=== PATIENT | female | born 1945 | race Caucasian/White ===

== ENCOUNTER 2018-06-23 01:17 | Observation (INO) | payer MEDICARE, BC ==
[2018-06-23] MEDS ORDERED: methylPREDNISolone 125 MG* 2 ML VIAL IV ONE (01:20)
[2018-06-23] MEDS ORDERED: NS 0.9% 1000 ML** 1,000 ML IV ONE (01:20)
[2018-06-23] MEDS ORDERED: Azithromycin 500 mg/250 ml NS 500 MG/250 ML BAG IVPB ONE (01:20)
[2018-06-23] MEDS ORDERED: cefTRIAXone(*) 1 GM in NS 0.9% 50 ML* 50 ML IVPB ONE (01:20)
--- NOTE | 2018-06-23 01:23 | ED ---
Shortness of Breath - HPI Summary HPI Summary: A 73 y/o F brought in by ambulance presents to ED with c/o worsening SOB onset 5 days ago. Associated sx: cough. Denies rash. She denies PMHx asthma, COPD but admits to not having seen a doctor in a long time. Denies daily medication. 1ppd smoker. - History of Current Complaint Time Seen by Provider: 06/23/18 01:20 Hx Obtained From: Patient, EMS Onset/Duration: Gradual Onset, Lasting Days, Still Present Timing: Constant Current Severity: Severe Dyspnea At: Rest Associated Signs & Symptoms: Cough (Productive) - Allergy/Home Medications Allergies/Adverse Reactions: Allergies Allergy/AdvReac Type Severity Reaction Status Date / Time No Known Allergies Allergy Verified 06/23/18 01:30 PMH/Surg Hx/FS Hx/Imm Hx Previously Healthy: Yes Respiratory History: Denies: Hx Asthma, Hx Chronic Obstructive Pulmonary Disease (COPD) Sensory History: Denies: Hx Legally Blind, Hx Deafness Opthamlomology History: Denies: Hx Legally Blind EENT History: Denies: Hx Deafness - Social History Occupation: Retired Lives: With Family Hx Tobacco Use: Yes Review of Systems Positive: Shortness Of Breath, Cough Negative: Rash All Other Systems Reviewed And Are Negative: Yes Physical Exam - Summary Physical Exam Summary: Appearance: Well-appearing, Mildly cachetic, elderly F lying in bed comfortably , mild respiratory distress, tachypnea noted Skin: Warm, dry, no obvious rash Eyes: sclera anicteric, no conjunctival pallor ENT: mucous membranes moist, pharynx appears normal Neck: Supple, nontender Respiratory: Prolonged expiratory phase with mildly diminished aeration, do not hear definite wheezes or focal signs of consolidation Cardiovascular: Normal S1, S2. No murmurs. Normal distal pulses in tibial and radial bilaterally. Abdomen: Soft, nontender, normal active bowel sounds present Musculoskeletal: Normal, Strength/ROM Intact Neurological: A&Ox3, awake and alert, mentation is normal, speech is fluent and appropriate Psychiatric: affect is normal, does not appear anxious or depressed Triage Information Reviewed: Yes Vital Signs Reviewed: Yes Diagnostics - Laboratory Result Diagrams: 06/23/18 01:58 06/23/18 01:58 Lab Statement: Any lab studies that have been ordered have been reviewed, and results considered in the medical decision making process. - Radiology CXR Radiology Interpretation Completed By: ED Physician Summary of Radiographic Findings: Stigmata of COPD with diaphragmatic flattening with increased AP diameter with some probably scarring, but no acute infiltrates. - EKG 0131 Cardiac Rate: Tachycardia - 100 bpm EKG Rhythm: Sinus Tachycardia Re-Evaluation - Re-Evaluation 1 Re-Evaluation Time: 03:07 Course/Dx - Course Course Of Treatment: Pt is a 73 y/o F brought in by ambulance presenting with worsening SOB onset 5 days ago. Lab work shows RBC: 5.23, glucose: 122, and low sodium, potassium and chloride levels. EKG is sinus tachy at 100 bpm. CXR shows stigmata of COPD with diaphragmatic flattening with increased AP diameter with some probably scarring, but no acute infiltrates. Consulted with Dr. James , hospitalist, who will admit patient. - Diagnoses Provider Diagnoses: COPD exacerbation, Respiratory distress - Physician Notifications Discussed Care of Patient With: Patricia James - hospitalist Time Discussed With Above Provider: 04:09 Instructed by Provider To: Admit As Inpatient Discharge - Sign-Out/Discharge Documenting (check all that apply): Patient Departure - ADMIT Patient Received Moderate/Deep Sedation with Procedure: No - Discharge Plan Condition: Fair Disposition: ADMITTED TO [facility] Referrals: No Primary Care Phys,NOPCP [Primary Care Provider] - - Billing Disposition and Condition Condition: FAIR Disposition: Admitted to [facility] - Attestation Statements Document Initiated by Malkaibe: Yes Documenting Scribe: Mike Moe Provider For Whom Scribe is Documenting (Include Credential): Dr. Isaias Olmstead MD Scribe Attestation: I, mj Mccracken for Dr. Isaias Olmstead MD on 06/23/18 at 0440. Scribe Documentation Reviewed: Yes Provider Attestation: The documentation as recorded by the Mike baca accurately reflects the service I personally performed and the decisions made by me, Dr. Isaias Olmstead MD Status of Scribe Document: Viewed
[2018-06-23] MEDS ORDERED: Albuterol 2.5 MG/3 ML NEB.SOL* (0.083%) INH ONE ×2 (01:43→02:14)
[2018-06-23] MEDS: Albuterol 2.5 MG/3 ML NEB.SOL* (0.083%) INH SCH ×3 (01:45→02:49)
[2018-06-23 02:08] LABS: Hematocrit 48 % (33-41); Hemoglobin 16.6 g/dL (12.0-16.0); Mean Corpuscular HGB Conc 34 g/dL (31-36); Mean Corpuscular Hemoglobin 32 pg (27-31); Mean Corpuscular Volume 92 fL (80-97); Red Blood Count 5.23 10^6 /uL (3.70-4.87); Red Cell Distribution Width 13 % (10.5-15); White Blood Count 6.8 10^3/uL (3.5-10.8)
[2018-06-23 02:24] LABS: Albumin/Globulin Ratio 1.7 (1-3); BUN/Creatinine Ratio 10.5 (8-20); Calcium 9.1 mg/dL (8.6-10.3); EGFR African American 126.5 (>60); EGFR Non-African American 104.6 (>60); Globulin 2.4 g/dL (2-4); Potassium 3.4 mmol/L (3.5-5.0); Total Bilirubin 0.4 mg/dL (0.2-1.0); Total Protein 6.4 g/dL (6.4-8.9)
[2018-06-23 03:03] LABS: ABS Basophils 0 10^3/ul (0-0.2); ABS Eosinophils 0 10^3/ul (0-0.6); ABS Lymphocytes 0.4 10^3/ul (1.0-4.8); ABS Monocytes 0.5 10^3/ul (0-0.8); ABS Neutrophils 5.9 10^3/ul (1.5-7.7); ABS Nucleated RBC 0 10^3/ul; Eosinophil % 0.1 %; Lymphocyte % 5.8 %; Mean Platelet Volume 9.9 fL (7.4-10.4); Nucleated Red Blood Cells % 0; Platelet Count 99 10^3/uL (150-450)
[2018-06-23] MEDS ORDERED: Al Hydrox/Mg Hydrox/Simet LIQ* 30 ML UDC PO PRN (04:37)
[2018-06-23] MEDS ORDERED: Acetaminophen TAB* 325 MG PO PRN (04:37)
[2018-06-23] MEDS ORDERED: Albuterol/Ipratropium NEB.SOL* Albuterol 2.5 MG/Ipratropium 0.5 MG 3 ML INH PRN (04:41)
[2018-06-23] MEDS ORDERED: Albuterol HFA INHALER* 8 gm MDI INH PRN (04:42)
[2018-06-23] MEDS ORDERED: Nicotine GUM* 2 MG PO PRN (04:46)
[2018-06-23] MEDS ORDERED: Nicotine PATCH 21 MG/24 HR* PATCH TRANSDERM ONE (04:46)
[2018-06-23 05:12] LABS: Magnesium 1.6 mg/dL (1.9-2.7)
[2018-06-23] MEDS ORDERED: Heparin VIAL(*) 5000 UNITS/ML VIAL (FIVE THOUSAND) SUBCUT SCH (06:00)
[2018-06-23] MEDS ORDERED: Nicotine Patch Removal NOTE FOLLOW UP SCH (06:00)
[2018-06-23] MEDS: Lactated Ringers 1000 ML Bag* 1,000 ML IV SCH ×2 (06:26→08:30)
--- NOTE | 2018-06-23 06:31 | HP ---
HISTORY AND PHYSICAL: DATE OF ADMISSION: 06/23/18 TIME OF EVALUATION: 0400. CHIEF COMPLAINT: Cough and shortness of breath. HISTORY OF PRESENT ILLNESS: This is a 73-year-old female with a past medical history of tobacco use, who has not seen a primary care physician since the , who presents to the emergency room with worsening cough, shortness of breath. The patient states her symptoms began on 06/18/18 with cough, congestion, and worsening respiratory distress. She states she has these spells where she either coughs to the point of significant shortness of breath or she exerts herself with going up and down the stairs and has significant shortness of breath. Her breathing got so bad that her daughter who lives with her convinced her to go to the emergency room for further evaluation. She has felt subjectively warm when she has her coughing fit and some chills, but no documented fever and no nausea, vomiting, diarrhea. No chest pain, no sick contacts, no abdominal pain, and no urinary symptoms. She does state it is a productive cough; hence, she has not been able to sleep well and only been able to get about 3 hours at a time. She states over the years she has gotten thinner and shorter, but no drastic weight loss in a short period of time. She has never used an inhaler or nebulizer in the past. She is independent of her ADLs and as mentioned, she smoked about a pack per day for the past 50 years. In the emergency room, the patient had labs, imaging. She was given 1 L of fluid, 125 mg of Solu-Medrol, 1 g of ceftriaxone, 500 mg of azithromycin, 2 albuterol nebs and referred to the hospitalist service for further evaluation. PAST MEDICAL HISTORY: Tobacco use. MEDICATIONS: None. ALLERGIES: None. FAMILY HISTORY: States her mother from a liver tumor and father from emphysema. SOCIAL HISTORY: The patient lives with her daughter and her grandson. Her daughter is her healthcare proxy. As mentioned, she smokes a pack per day for the past 50 years. She drinks about a quarter glass of wine diluted into water with ice. She has a few of these per night. No illicit drug use. Code Status : Full code. REVIEW OF SYSTEMS: A 14-point review of systems as mentioned in the HPI; otherwise, negative. PHYSICAL EXAMINATION GENERAL: Frail, elderly, thin female, in no acute distress. Daughter is at the bedside. VITAL SIGNS: Temp 99.2, pulse rate of 110, respiratory rate 28, oxygen saturation 93% on room air, blood pressure 133/58. HEENT: Head: Normocephalic. Pupils equal and reactive, anicteric. Oropharynx : Significant posterior erythema. NECK: Supple. No lymphadenopathy. RESPIRATORY: Diminished breath sounds, prolonged inspiratory phase. Coarse wheezing sounding cough. No increased work of breathing. No expiratory wheezing, rhonchi, or rales. CARDIAC: Tachycardic. Soft systolic murmur heard throughout. ABDOMEN: Soft, nontender, and nondistended. EXTREMITIES: No clubbing, cyanosis, or edema. NEUROLOGIC: Alert and oriented x3. No gross focal neurologic deficits. DIAGNOSTIC STUDIES/LAB DATA: Laboratory Data: White count 6.8, hemoglobin 6.6 , hematocrit 48, platelets 99. D- dimer is less than 200. Sodium 128, potassium 3.4, chloride 94, bicarb 27, BUN is 6, creatinine 0.57, troponin is 0. Radiographic data: Chest x-ray hyperinflation, findings consistent with COPD. No significant infiltrate. EKG: Sinus tachycardia. ASSESSMENT: This is a 73-year-old female with 50-pack year history, who has not seen a primary care physician in over 20 years, who presents with worsening cough and shortness of breath. 1. Cough with shortness of breath. Assessment: The patient's history and physical is most consistent with chronic obstructive pulmonary disease exacerbation, most likely secondary to a viral illness. No significant white count. No significant findings on chest x-ray. No significant respiratory distress. Plan: We will admit for observation. Continue on prednisone 40 mg, continue on nebulizer and inhaler regimen. We will continue on azithromycin for chronic obstructive pulmonary disease exacerbation. We will also check her for pertussis as well, which azithromycin will also treat. Place her on IV fluids. I will put in for respiratory to do teaching on inhalers and nebulizers if she is discharged home on this and we will initiate her on Dulera at this time. Discussed smoking cessation, place her on nicotine patch with nicotine gum. 2. Thrombocytopenia. Could be related to a viral illness. Recommend if she stays for the remainder of the night, to repeat her labs and to follow up as an outpatient, get herself established with a primary care physician. 3. FEN. Have a regular diet. 4. DVT prophylaxis. The patient scores moderate risk. Place her on heparin subcu t.i.d. 5. Code status: Full code. DISPOSITION: The patient will need to be plugged in with a primary care physician at discharge. PATIENT TIME: Greater than 45 minutes was spent doing the history and physical , more than half the time spent in direct patient contact. [id number]/CPS #: [id number] DOMENICA
[2018-06-23] MEDS: Mometasone/Formoter 200/5 MDI INH SCH ×2 (08:20→19:26)
[2018-06-23] MEDS: Benzonatate CAP* 100 MG PO PRN ×3 (09:46→22:12)
[2018-06-23] MEDS: predniSONE TAB* 20 MG PO SCH (09:46)
[2018-06-23] MEDS ORDERED: Magnesium Sulfate 2 GM IV* 2 GM/50 ML BAG IVPB ONE (11:27)
[2018-06-23] MEDS ORDERED: Potassium Chloride LIQUID* 20 MEQ PACKET PO ONE (12:00)
[2018-06-23] MEDS ORDERED: traZODone TAB* 50 MG TAB PO PRN (20:24)
--- NOTE | 2018-06-23 20:32 | PN ---
Subjective Date of Service: 06/23/18 Interval History: Brief update: Pt admitted this morning. Required O2 on ambulation but not at rest. Noted K 3.6 and Mg 1.6 -> repleted. Hgb elevated - likely with hypoxia at home, undiagnosed. Gen: tired-appearing woman in NAD, without increased WOB Card: rrr no mgr, no JVD Lungs: decreased air movement but no wheezing or crackles Abd soft nontender LE without edema, wwp Will have pt work with PT given 2nd floor bathroom in her home. Discussed with case management team need for transport to clinic appointments. Pt motivated to never smoke again. Cont NRT here. Cont steroid burst. May need home O2. Currently not requiring supplement at rest - will walk with SaO2 monitoring tomorrow. Objective Active Medications: Acetaminophen (Tylenol Tab*) 650 mg PO Q4H PRN PRN Reason: FEVER/PAIN Al Hydrox/Mg Hydrox/Simethicone (Maalox Plus*) 30 ml PO Q6H PRN PRN Reason: INDIGESTION Albuterol (Ventolin Hfa Inhaler*) 2 puff INH Q2HR PRN PRN Reason: SHORTNESS OF BREATH Albuterol/Ipratropium (Duoneb (Albuterol 2.5 Mg/Ipratropium 0.5 Mg)) 1 neb INH Q4H PRN PRN Reason: SOB/WHEEZING Azithromycin (Zithromax Tab*) 250 mg PO DAILY@2200 [facility] Benzonatate (Tessalon Cap*) 200 mg PO TID PRN PRN Reason: COUGH Last Admin: 06/23/18 16:41 Dose: 200 mg Enoxaparin Sodium (Lovenox(*)) 40 mg SUBCUT Q24H [facility] Mometasone Furoate/Formoterol Fumar (Dulera 200/5 Mdi*) 2 puff INH BID [facility] Last Admin: 06/23/18 19:26 Dose: 2 puff Nicotine Polacrilex (Nicotine Gum*) 2 mg PO Q2H PRN PRN Reason: CRAVING Pharmacy Profile Note (Nicotine Patch Removal Note*) 1 note PATCH OFF 2100 [facility] Prednisone (Deltasone Tab*) 40 mg PO DAILY [facility] Last Admin: 06/23/18 09:46 Dose: 40 mg Vital Signs - 8 hr 04/23/19 04/23/19 17:43 19:30 Temperature 98.1 F Pulse Rate 98 106 Respiratory 20 16 Rate Blood Pressure 154/85 (mmHg) O2 Sat by Pulse 94 96 Oximetry Oxygen Devices in Use Now: Nasal Cannula Result Diagrams: 06/23/18 01:58 06/23/18 01:58 Microbiology and Other Data: Microbiology 06/23/18 15:28 Gram Stain - Final Sputum Assess/Plan/Problems-Billing Assessment:
[2018-06-23] MEDS: Enoxaparin(*) 40 MG/0.4 ML SYR SUBCUT SCH (22:12)
[2018-06-23] MEDS: Nicotine Patch Removal NOTE PATCH OFF SCH (22:15)
[2018-06-24] MEDS: amLODIPine TAB* 5 MG PO SCH ×2 (01:23→09:31)
[2018-06-24] MEDS: Mometasone/Formoter 200/5 MDI INH SCH ×2 (08:35→19:54)
[2018-06-24] MEDS ORDERED: Potassium Chloride LIQUID* 20 MEQ PACKET PO ONE (09:00)
[2018-06-24 09:23] LABS: Hematocrit 47 % (33-41); Hemoglobin 16.2 g/dL (12.0-16.0); Mean Corpuscular HGB Conc 35 g/dL (31-36); Mean Corpuscular Hemoglobin 32 pg (27-31); Mean Corpuscular Volume 92 fL (80-97); Red Cell Distribution Width 14 % (10.5-15); White Blood Count 11.7 10^3/uL (3.5-10.8)
[2018-06-24 09:28] LABS: BUN/Creatinine Ratio 13.3 (8-20); Calcium 9.3 mg/dL (8.6-10.3); EGFR African American 119.2 (>60); EGFR Non-African American 98.5 (>60); Magnesium 2.2 mg/dL (1.9-2.7); Potassium 3.9 mmol/L (3.5-5.0)
[2018-06-24] MEDS: predniSONE TAB* 20 MG PO SCH (09:31)
[2018-06-24 10:03] LABS: ABS Basophils 0 10^3/ul (0-0.2); ABS Eosinophils 0 10^3/ul (0-0.6); ABS Lymphocytes 0.9 10^3/ul (1.0-4.8); ABS Neutrophils 9.8 10^3/ul (1.5-7.7); ABS Nucleated RBC 0 10^3/ul; Eosinophil % 0 %; Lymphocyte % 7.9 %; Mean Platelet Volume 10.1 fL (7.4-10.4); Nucleated Red Blood Cells % 0.1; Platelet Count 96 10^3/uL (150-450)
[2018-06-24] MEDS: Nicotine PATCH 21 MG/24 HR* PATCH TRANSDERM SCH (13:21)
[2018-06-24] MEDS ORDERED: Potassium Chlor TAB* 20 MEQ TAB.ER PO ONE (15:27)
--- NOTE | 2018-06-24 15:35 | PN ---
Subjective Date of Service: 06/24/18 Interval History: Pt declined to ascend stairs with PT given SOB. Has 2nd floor bathroom at her home. PT recommending continued skilled PT. Still needs ambulatory SaO2 documented by RN. Pt does not need O2 at rest. Her goal SaO2 is 88-92%. This AM, she denies SOB at rest but still has fatigue and decreased appetite. Cough improved. No fevers or chills. Started on amlo last night for elevated BP. Objective Active Medications: Acetaminophen (Tylenol Tab*) 650 mg PO Q4H PRN PRN Reason: FEVER/PAIN Al Hydrox/Mg Hydrox/Simethicone (Maalox Plus*) 30 ml PO Q6H PRN PRN Reason: INDIGESTION Albuterol (Ventolin Hfa Inhaler*) 2 puff INH Q2HR PRN PRN Reason: SHORTNESS OF BREATH Albuterol/Ipratropium (Duoneb (Albuterol 2.5 Mg/Ipratropium 0.5 Mg)) 1 neb INH Q4H PRN PRN Reason: SOB/WHEEZING Amlodipine Besylate (Norvasc Tab*) 5 mg PO DAILY [facility] Last Admin: 06/24/18 09:31 Dose: 5 mg Azithromycin (Zithromax Tab*) 250 mg PO DAILY@2200 [facility] Benzonatate (Tessalon Cap*) 200 mg PO TID PRN PRN Reason: COUGH Last Admin: 06/23/18 22:12 Dose: 200 mg Enoxaparin Sodium (Lovenox(*)) 40 mg SUBCUT Q24H [facility] Last Admin: 06/23/18 22:12 Dose: 40 mg Mometasone Furoate/Formoterol Fumar (Dulera 200/5 Mdi*) 2 puff INH BID [facility] Last Admin: 06/24/18 08:35 Dose: 2 puff Nicotine (Nicotine Patch 21 Mg/24 Hr*) 1 patch TRANSDERM DAILY [facility] Last Admin: 06/24/18 13:21 Dose: 1 patch Nicotine Polacrilex (Nicotine Gum*) 2 mg PO Q2H PRN PRN Reason: CRAVING Pharmacy Profile Note (Nicotine Patch Removal Note*) 1 note PATCH OFF 2100 [facility] Last Admin: 06/23/18 22:15 Dose: 1 note Potassium Chloride (Klor Con Er Tab*) 20 meq PO ONCE ONE Stop: 06/24/18 15:28 Prednisone (Deltasone Tab*) 40 mg PO DAILY [facility] Last Admin: 06/24/18 09:31 Dose: 40 mg Trazodone HCl (Desyrel Tab*) 50 mg PO BEDTIME PRN PRN Reason: SLEEP Last Admin: 06/23/18 22:12 Dose: 50 mg Vital Signs - 8 hr 06/24/18 06/24/18 06/24/18 07:59 08:00 11:37 Temperature 97.6 F 97.4 F Pulse Rate 87 92 88 Respiratory 18 20 Rate Blood Pressure 151/68 139/62 (mmHg) O2 Sat by Pulse 94 93 94 Oximetry 06/24/18 15:07 Temperature 98.2 F Pulse Rate 80 Respiratory 16 Rate Blood Pressure 130/70 (mmHg) O2 Sat by Pulse 94 Oximetry Oxygen Devices in Use Now: None Appearance: tired appearing elderly woman, NAD, no increased WOB Ears/Nose/Mouth/Throat: Mucous Membranes Moist Respiratory: - - poor air movement, no wheeze/crackles Cardiovascular: RRR Extremities: No Edema Neurological: Alert and Oriented x 3 Result Diagrams: 06/24/18 08:28 06/24/18 08:28 Microbiology and Other Data: Microbiology 06/23/18 15:28 Gram Stain - Final Sputum Assess/Plan/Problems-Billing Assessment: 73W with 50 pack-year history, without medical contact in over 20 years, presents with chronic progressive cough and dyspnea. - Patient Problems (1) COPD exacerbation Comment: New dx for this patient with significant tobacco history. Low suspicioun for infection. - cont nebs prn - on steroid burst - last day 06/27 - standing inhaler - now on Dulera, consider LAMA at outpatient - on azithro PO - need ambulatory O2 recording - goal SaO2 is 88-92% - avoid hyperoxia - smoking cessation (2) Hypertension Comment: - cont amlodipine 5 (3) Tobacco abuse Current Visit: Yes Comment: - on NRT patch (4) DVT prophylaxis Comment: lovenox Status and Disposition: pending discharge planning with PT
[2018-06-24] MEDS: Azithromycin TAB* 250 MG PO SCH (16:34)
[2018-06-24] MEDS ORDERED: Azithromycin TAB* 250 MG PO SCH (22:00)
[2018-06-24] MEDS: Enoxaparin(*) 40 MG/0.4 ML SYR SUBCUT SCH (22:43)
[2018-06-24] MEDS: Nicotine Patch Removal NOTE PATCH OFF SCH (22:44)
[2018-06-25] MEDS: Mometasone/Formoter 200/5 MDI INH SCH ×2 (07:55→20:26)
[2018-06-25] MEDS: predniSONE TAB* 20 MG PO SCH (10:26)
[2018-06-25] MEDS: amLODIPine TAB* 5 MG PO SCH (10:26)
[2018-06-25] MEDS: Nicotine PATCH 21 MG/24 HR* PATCH TRANSDERM SCH (10:26)
[2018-06-25 11:37] LABS: Bordetella pertussis PCR Negative
[2018-06-25 11:40] LABS: Anion Gap 6 mmol/L (2-11); BUN/Creatinine Ratio 18.9 (8-20); Blood Urea Nitrogen 10 mg/dL (6-24); CO2 Carbon Dioxide 31 mmol/L (22-32); Calcium 9.8 mg/dL (8.6-10.3); Chloride 93 mmol/L (101-111); EGFR African American 137.6 (>60); EGFR Non-African American 113.7 (>60); Glucose 107 mg/dL (70-100); Potassium 3.3 mmol/L (3.5-5.0); Sodium 130 mmol/L (135-145)
[2018-06-25 12:05] LABS: % Iron Saturation 34 % (15-55); Iron 102 ug/dL (50-212); Total Iron Binding Capacity 300 mcg/dL (250-450); Transferrin 214 mg/dL (203-362)
[2018-06-25 12:20] LABS: TSH (Thyroid Stimulating Horm) 0.59 mcIU/mL (0.34-5.60)
[2018-06-25 12:26] LABS: Ferritin 426.1 ng/mL (11-307)
[2018-06-25] MEDS ORDERED: Potassium Chlor TAB* 20 MEQ TAB.ER PO ONE (15:08)
[2018-06-25] MEDS: Benzonatate CAP* 100 MG PO PRN (15:44)
[2018-06-25] MEDS: Azithromycin TAB* 250 MG PO SCH (17:34)
[2018-06-25 20:03] VITALS: BP 161/78
--- NOTE | 2018-06-25 22:58 | DS ---
DISCHARGE SUMMARY: DATE OF ADMISSION: 06/23/18 DATE OF DISCHARGE: 06/25/18 PRIMARY CARE PHYSICIAN: None. DISPOSITION: To home. CONDITION: Improved. PRIMARY DIAGNOSES: 1. New chronic obstructive pulmonary disease with exacerbation. 2. Hypertension. 3. Tobacco abuse. DISCHARGE MEDICATIONS: 1. Tiotropium 1 inhalation daily. 2. Albuterol 2 puffs every 4 hours as needed for shortness of breath. 3. Benzonatate capsule 200 mg 3 times a day as needed for cough. 4. Nicotine patch 21 mg over 24 hours 1 patch transdermally daily. 5. Amlodipine 5 mg at bedtime. 6. Prednisone 40 mg daily for 2 more days. HISTORY OF PRESENT ILLNESS: This is a 73-year-old woman with active tobacco use , who has not seen a primary care physician in almost 30 years, who is presenting with worsening cough, shortness of breath, and fatigue. She states that these are chronic issues, but progressively worsened approximately 5 days prior to discharge and were associated with congestion, cough, and worsening respiratory distress. She has these spells where she coughs to the point of significant shortness of breath or she exerts herself going up and down the stairs and has significant shortness of breath. Her breathing got so bad that her daughter, who she lives with, convinced her to go to the emergency room for further evaluation. She has felt subjectively warm when she has her coughing fit with some chills but no documented fever, or nausea, vomiting, or diarrhea. She denies chest pain, sick contacts, abdominal pain, or urinary symptoms. The cough interrupts her sleep. Over the last few years, she has gotten thinner and shorter but no drastic weight loss in a short period of time and no night sweats. She has never used inhaler before and she is generally independent in her ADLs. She has been smoking about a pack per day for the last 50 years. HOSPITAL COURSE: She was given, in the emergency room, 1 L of fluid with 125 mg of Solu-Medrol IV, 1 g of ceftriaxone, 500 mg of azithromycin with nebulizers and admitted to the hospitalist service for further evaluation and suspected COPD exacerbation. It was thought that her picture was most consistent with a new diagnosis of COPD and exacerbation likely secondary to viral illness given viral prodrome and lack of leukocytosis or fevers without significant findings on chest x- ray. She was admitted for observation and she did initially require oxygen, although she was usually able to stay off oxygen at rest. When walking with the nursing staff, he did desaturate to 85%, so it was deemed she would need home oxygen setup. She has a bathroom on the second floor of her home, so she was followed by Physical Therapy, and she was able to ascend 1 flight of stairs. She remained afebrile off antibiotics and reports a slow return in her strength throughout the hospitalization with significant improvement in her cough and shortness of breath. She was educated extensively on smoking cessation, and she is very motivated to abstain from cigarettes and plans to buy her daughter nicotine patches for her upcoming birthday so that they can quit together. She was educated on the need for likely long-term inhalers as well as home oxygen, and she was educated on the importance of following up with clinic both for ongoing management of her COPD and newly diagnosed hypertension while admitted, but also for ongoing preventative care and cancer screening. Of note, she is eligible for colonoscopy and lung cancer screening by CT scan. She may also be able to come off a blood pressure medicine once she is off her prednisone burst. REVIEW OF SYSTEMS: On the day of discharge, other than stated above, her 10- point review of systems was negative. PHYSICAL EXAMINATION: Vital signs: Afebrile, heart rate 90s, blood pressure 154/87, respiratory rate 16, oxygen saturation 98% on 2 L nasal cannula. General: Chronically ill appearing, frail elderly woman, in no acute distress. Appears tired. HEENT: Oropharynx with improving posterior erythema. Tonsils not well visualized. Neck: Supple without lymphadenopathy. No JVD. Lungs: With diminished breath sounds, although improving air movement from admission without wheeze or crackles. Heart: Regular rate and rhythm. No murmurs, gallops, or rubs. Abdomen: Soft, nontender, nondistended. Extremities: Thin , no edema. Warm and well perfused. Neuro: A and O x3 without focal motor deficits. DIAGNOSTIC STUDIES AND LABS: TSH 0.59, Bordetella pertussis swab negative. Potassium persistently low, but repleted in the hospital. Hemoglobin elevated to 6.6. Chest x-ray with hyperinflated lungs without evidence for pneumonia or volume overload. DISCHARGE PLAN: The patient is to establish care in the care coordination clinic. She should have her potassium monitored with ongoing education for her new chronic illnesses such as COPD, and she should have ongoing followup for smoking cessation and blood pressure monitoring given new blood pressure medication amlodipine started while admitted. She should also undergo age appropriate cancer screening such as colonoscopy and lung CT. She is to remain on tiotropium with albuterol rescues, but may require a LABA/ICS if her symptoms are not well controlled with tiotropium alone. She is to continue 2 more days of her prednisone burst and she was sent home with home oxygen. Written precautions were given to the patient. She is to resume a regular diet of food that she enjoys and try to eat excessive calories to put on weight that she has been losing over the last few years. She is to resume activity as tolerated. TIME SPENT: Approximately 60 minutes spent on discharge of this patient; more than half of which was spent with care coordination or at bedside for exam and interview. [id number]/CPS #: [id number] MTDD
[2018-06-26] MEDS ORDERED: Nicotine PATCH 21 MG/24 HR* PATCH TRANSDERM SCH (09:00)
== END 2018-06-25 18:50 | disposition home or self-care (01) ==
LOC: ED 01:17 → MED 04:37
PROVIDERS: ADMIT Pediatrics; ATTEND Internal Medicine
DX: J44.1 Chronic obstructive pulmonary disease with (acute) exacerbation (principal); I10 Essential (primary) hypertension; F17.210 Nicotine dependence, cigarettes, uncomplicated; R05 Cough; R53.83 Other fatigue; D69.6 Thrombocytopenia, unspecified
CPT/HCPCS: 36415; 71046; 80048; 80053; 82728; 83540; 83550; 83605; 83735; 84443; 84484; 85025; 85060; 85379; 87040; 87070; 87205; 87798; 93005; 94640; 99284; A9270-GY; G0378; G8978-GP-CJ; G8979-GP-CI; J0456; J0696; J1644; J1650; J2930; J3475; J7512